=== PATIENT | female | born 1970 | race Caucasian/White ===

== ENCOUNTER 2016-05-09 02:17 | Emergency (ER) | payer SELFPAY ==
[~2016-05-09 02:17] MED LIST: ALPR2TAB5 PO; LURA80TA PO
[2016-05-09] MEDS ORDERED: ONDANSETRON PF 4 MG/2 ML VIAL. IV ONE ×2 (02:30)
[2016-05-09] MEDS ORDERED: MVI, ADULT NO.4 WITH VIT K 10 ML, FOLIC ACID 1 MG, THIAMINE 100 MG in IV DEXTROSE 5%-LA... IV ONE ×4 (02:30)
[2016-05-09] MEDS ORDERED: FOLIC ACID 5 MG/ML SYRINGE for ER IV ONE (02:33)
[2016-05-09] MEDS ORDERED: IV DEXTROSE 5%-LACT RINGERS 1,000 ML ONE (02:33)
[2016-05-09] MEDS ORDERED: MVI, ADULT NO.4 WITH VIT K 10 ML VIAL IV ONE (02:33)
[2016-05-09] MEDS ORDERED: THIAMINE 200 MG/2 ML VIAL. IV ONE (02:34)
[2016-05-09 02:45] LABS: BARBITURATES NEG (NEG); BENZODIAZEPINES POS (NEG); CANNABINOIDS NEG (NEG); COCAINE NEG (NEG); METHADONE NEG (NEG); OPIATES NEG (NEG); PHENCYCLIDINE NEG (NEG)
[2016-05-09 02:46] LABS: AMPHETAMINE/METHAMPHETAMINE NEG (NEG)
[2016-05-09 02:53] LABS: ALBUMIN 3.4 g/dL (3.4-5.0); ALBUMIN/GLOBULIN RATIO 0.8 (1.0-1.7); BACTERIA,URINE FEW /HPF (0-FEW); BILIRUBIN,URINE NEG (NEG); CALCIUM 8.4 mg/dL (8.5-10.1); CLARITY,URINE CLEAR; COLOR,URINE YELLOW; CREATININE 0.8 mg/dL (0.6-1.0); GFR 77.2; GLUCOSE,URINE NEG (NEG); NITRITE,URINE NEG (NEG); POTASSIUM 3.7 mmol/L (3.5-5.1); RBC,URINE 0 /HPF (0-2); SQUAMOUS EPITHELIAL CELL,UR FEW /LPF; TOTAL BILIRUBIN 0.3 mg/dL (0.2-1.0); TOTAL PROTEIN 7.8 g/dL (6.4-8.2); UROBILINOGEN,URINE 0.2 mg/dL (0.2 mg/dL); WBC,URINE RARE /HPF (0-4)
[2016-05-09 02:56] LABS: ETHANOL 184 mg/dL (0-10); SALIC 4.2 mg/dL (2.8-20.0)
[2016-05-09 02:57] LABS: ACETAMIN < 2.0 mcg/mL (10-30)
[2016-05-09 03:16] LABS: BASO # 0.1 x10^3/uL (0.0-0.2); BASO % 1 % (0-3); EOS # 0.2 x10^3/uL (0.0-0.7); EOS % 2 % (0-3); HEMATOCRIT 44.6 % (36.0-47.0); LYMPH # 2.5 x10^3/uL (1.0-4.8); LYMPH % 28 % (24-48); MEAN CORPUSCULAR HEMOGLOBIN 31 pg (25-35); MEAN CORPUSCULAR HGB CONC 34 g/dL (31-37); MEAN CORPUSCULAR VOLUME 91 fL (79-100); MONO # 0.7 x10^3/uL (0.0-1.1); MONO % 8 % (0-9); NEUT # 5.4 x10^3uL (1.8-7.7); NEUT % 61 % (31-73); PLATELET COUNT 270 x10^3/uL (140-400); RED BLOOD COUNT 4.91 x10^6/uL (3.50-5.40); RED CELL DISTRIBUTION WIDTH 13.7 % (11.5-14.5); WHITE BLOOD COUNT 8.9 x10^3/uL (4.0-11.0)
[2016-05-09] MEDS ORDERED: IV RINGERS SOLUTION,LACTATED 1,000 ML IV ONE ×2 (03:47→04:00)
[2016-05-09 05:03] VITALS: BP 106/68
[2016-05-09] MEDS ORDERED: ONDA4TAB7 PO (05:03)
--- NOTE | 2016-05-09 05:04 | PHYS DOC ---
Past History Past Medical History: Anxiety, Bipolar, Depression, Schizophrenia Past Surgical History: Appendectomy, , Hysterectomy Alcohol Use: Heavy Drug Use: None Adult General Chief Complaint Chief Complaint: ALCOHOL INTOXICATION HPI HPI 46-year-old female with a history of anxiety and bipolar presents stating she took 4 Xanax throughout the day and then was drinking margaritas with her [id number] and became sick and throw up so she called EMS to come take her to the emergency department for further evaluation. She denies any other ingestion. She denies any suicidal or homicidal ideation. is intoxicated. [] Review of Systems Review of Systems Constitutional: Denies fever or chills [] Eyes: Denies change in visual acuity, redness, or eye pain [] HENT: Denies nasal congestion or sore throat [] Respiratory: Denies cough or shortness of breath [] Cardiovascular: No additional information not addressed in HPI [] GI: Denies abdominal pain, nausea, vomiting, bloody stools or diarrhea [] : Denies dysuria or hematuria [] Musculoskeletal: Denies back pain or joint pain [] Integument: Denies rash or skin lesions [] Neurologic: Denies headache, focal weakness or sensory changes [] Endocrine: Denies polyuria or polydipsia [] Current Medications Current Medications Current Medications Medications (Trade) Dose Ordered Sig/Danyel Start Time Stop Time Status Last Admin Dose Admin Dextrose/Lactated Ringer's (Iv D5%-Lr) 1,000 ml @ As Directed STK-MED ONCE 05/09/16 02:33 05/09/16 02:34 DC Folic Acid 5 mg STK-MED ONCE 05/09/16 02:33 05/09/16 02:34 DC Lactated Ringer's (Iv Lactated Ringers) 1,000 ml @ 1,000 mls/hr 1X ONCE 05/09/16 04:00 05/09/16 04:59 DC 05/09/16 03:56 1,000 MLS/HR Multivitamins/ Minerals (Infuvite Adult) 10 ml STK-MED ONCE 05/09/16 02:33 05/09/16 02:34 DC Multivitamins/ Minerals/Folic Acid/Thiamine HCl/ Dextrose/Lactated Ringer's (Infuvite Adult/ Iv D5%-Lr) 1,011.2 ml @ 0 mls/hr 1X ONCE 05/09/16 02:30 05/09/16 02:42 1,000 MLS/HR Ondansetron HCl (Zofran) 4 mg 1X ONCE 05/09/16 02:30 05/09/16 04:38 DC 05/09/16 02:29 4 MG Ondansetron HCl 4 mg 4 mg 1X ONCE 05/09/16 02:30 05/09/16 04:38 DC 05/09/16 02:30 4 MG Thiamine HCl 200 mg 200 mg STK-MED ONCE 05/09/16 02:34 05/09/16 02:35 DC Allergies Allergies Allergies Coded Allergies Type Severity Reaction Last Updated Verified No Known Drug Allergies 12/16/15 No Physical Exam Physical Exam Constitutional: Well developed, well nourished, no acute distress, obviously intoxicated. [] HENT: Normocephalic, atraumatic, bilateral external ears normal, oropharynx moist, no oral exudates, nose normal. [] Eyes: PERRLA, EOMI, conjunctiva normal, no discharge. [] Neck: Normal range of motion, no tenderness, supple, no stridor. [] Cardiovascular:Heart rate regular rhythm, no murmur [] Lungs & Thorax: Bilateral breath sounds clear to auscultation [] Abdomen: Bowel sounds normal, soft, no tenderness, no masses, no pulsatile masses. [] Skin: Warm, dry, no erythema, no rash. [] Back: No tenderness, no CVA tenderness. [] Extremities: No tenderness, no cyanosis, no clubbing, ROM intact, no edema. [] Neurologic: Alert and oriented X 3, normal motor function, normal sensory function, no focal deficits noted. [] Psychologic: Intoxicated. [] Current Patient Data Vital Signs Vital Signs Date Time Temp Pulse Resp B/P Pulse Ox O2 Delivery O2 Flow Rate FiO2 05/09/16 03:45 100 20 90/46 94 Room Air 05/09/16 02:17 97.9 Lab Results Laboratory Tests Test 05/09/16 02:15 White Blood Count 8.9x10^3/uL (4.0-11.0) Red Blood Count 4.91x10^6/uL (3.50-5.40) Hemoglobin 15.0g/dL (12.0-15.5) Hematocrit 44.6% (36.0-47.0) Mean Corpuscular Volume 91fL (79-100) Mean Corpuscular Hemoglobin 31pg (25-35) Mean Corpuscular Hemoglobin Concent 34g/dL (31-37) Red Cell Distribution Width 13.7% (11.5-14.5) Platelet Count 270x10^3/uL (140-400) Neutrophils (%) (Auto) 61% (31-73) Lymphocytes (%) (Auto) 28% (24-48) Monocytes (%) (Auto) 8% (0-9) Eosinophils (%) (Auto) 2% (0-3) Basophils (%) (Auto) 1% (0-3) Neutrophils # (Auto) 5.4x10^3uL (1.8-7.7) Lymphocytes # (Auto) 2.5x10^3/uL (1.0-4.8) Monocytes # (Auto) 0.7x10^3/uL (0.0-1.1) Eosinophils # (Auto) 0.2x10^3/uL (0.0-0.7) Basophils # (Auto) 0.1x10^3/uL (0.0-0.2) Urine Collection Type U cath Urine Color Yellow Urine Clarity Clear Urine pH 5.0 Urine Specific [place] <=1.005 Urine Protein Neg (NEG-TRACE) Urine Glucose (UA) Negmg/dL (NEG) Urine Ketones (Stick) Negmg/dL (NEG) Urine Blood Neg (NEG) Urine Nitrite Neg (NEG) Urine Bilirubin Neg (NEG) Urine Urobilinogen Dipstick 0.2mg/dL (0.2 mg/dL) Urine Leukocyte Esterase Neg (NEG) Urine RBC 0/HPF (0-2) Urine WBC Rare/HPF (0-4) Urine Squamous Epithelial Cells Few/LPF Urine Bacteria Few/HPF (0-FEW) Sodium Level 146mmol/L (136-145) H Potassium Level 3.7mmol/L (3.5-5.1) Chloride Level 109mmol/L (98-107) H Carbon Dioxide Level 27mmol/L (21-32) Anion Gap 10 (6-14) Blood Urea Nitrogen 10mg/dL (7-20) Creatinine 0.8mg/dL (0.6-1.0) Estimated GFR (Cockcroft-Gault) 77.2 BUN/Creatinine Ratio 13 (6-20) Glucose Level 101mg/dL (70-99) H Calcium Level 8.4mg/dL (8.5-10.1) L Total Bilirubin 0.3mg/dL (0.2-1.0) Aspartate Amino Transferase (AST) 49U/L (15-37) H Alanine Aminotransferase (ALT) 58U/L (14-59) Alkaline Phosphatase 79U/L (46-116) Total Protein 7.8g/dL (6.4-8.2) Albumin 3.4g/dL (3.4-5.0) Albumin/Globulin Ratio 0.8 (1.0-1.7) L Salicylates Level 4.2mg/dL (2.8-20.0) Salicylate Last Dose Date Unknown Salicylate Last Dose Time Unknown Urine Opiates Screen Neg (NEG) Urine Methadone Screen Neg (NEG) Acetaminophen Level < 2.0mcg/mL (10-30) L Acetaminophen Last Dose Date Unknown Acetaminophen Last Dose Time Unknown Urine Barbiturates Neg (NEG) Urine Phencyclidine Screen Neg (NEG) Urine Amphetamine/Methamphetamine Neg (NEG) Urine Benzodiazepines Screen Pos (NEG) Urine Cocaine Screen Neg (NEG) Urine Cannabinoids Screen Neg (NEG) Ethyl Alcohol Level 184mg/dL (0-10) H Urine Ethyl Alcohol Pos (NEG) EKG EKG [] Radiology/Procedures Radiology/Procedures [] Course & Med Decision Making Course & Med Decision Making Pertinent Labs and Imaging studies reviewed. (See chart for details) [ED course: Evaluation reveals a very intoxicated 46-year-old female. She was given a total of 2 L of fluids 1 being a banana bag of lactated Ringer's and 4 of Zofran. This did help alleviate her symptoms. She was watched in the emergency department for several hours until she was able to sober up. She had a ride here to take care of her. She is stable to go home.] Dragon Disclaimer Dragon Disclaimer This chart was dictated in whole or in part using Voice Recognition software in a busy, high-work load, and often noisy Emergency Department environment. It may contain unintended and wholly unrecognized errors or omissions. Departure Departure: Impression: Primary Impression: Alcohol intoxication Disposition: 01 HOME, SELF-CARE Condition: IMPROVED Referrals: [facility] (PCP) Patient Instructions: Alcohol Intoxication Additional Instructions: Thank you for allowing us to participate in your care today. Followup with your primary care physician in 3 days if your symptoms do not improve. Return to the emergency department you have any new or concerning findings. This should be evaluated by the primary care physician and any necessary consulting services for continued management within a few days after discharge. Return to emergency room if you have any new or concerning symptoms including but not limited to fever, chills, nausea, vomiting, intractable pain, any new rashes, chest pain, shortness of air, uncontrolled bleeding, difficulty breathing, and/or vision loss. You may have been prescribed medication that can change in your level of thinking and ability to operate machinery. These medications include hydrocodone and Ativan. Also, Benadryl has been known to do this as well. Be sure to check with your pharmacist and ask if the medications you've prescribed can affect your level of consciousness. I recommend not operating heavy machinery or driving while on medication such as these. Scripts Ondansetron Hcl (Zofran)4 Mg Tablet1 Tab PO Q8HRS NAUSEA #20 TAB Prov:WILLIAM CERDA DO 05/09/16 Problem Qualifiers Primary Impression: Alcohol intoxication Complication of substance-induced condition: uncomplicated Qualified Code: F10.120 - Alcohol abuse with intoxication, uncomplicated WILLIAM CERDA DO May 09, 2016 05:04
== END 2016-05-09 05:13 | disposition home or self-care (01) ==
LOC: ER 02:17
DX: F10.129 Alcohol abuse with intoxication, unspecified (principal); F41.9 Anxiety disorder, unspecified; F31.9 Bipolar disorder, unspecified; F20.9 Schizophrenia, unspecified; Z90.710 Acquired absence of both cervix and uterus; Z90.49 Acquired absence of other specified parts of digestive tract; Y90.6 Blood alcohol level of 120-199 mg/100 ml
CPT/HCPCS: 36415; 80053; 80305; 80320; 81001; 85027; 96361; 96365; 96375; 99284; G6038; J2405; J7120; G0480; G0481; 80196

== ENCOUNTER 2016-10-25 21:34 | Emergency (ER) | payer SELFPAY ==
[~2016-10-25] VITALS: Ht 167.6 cm; Wt 104.0 kg
[~2016-10-25 21:34] MED LIST changes: +ONDA4TAB7 PO
--- NOTE | 2016-10-25 21:48 | ED.ADGEN ---
Past History Past Medical History: Anxiety, Bipolar, Depression, DVT, Schizophrenia Past Surgical History: Appendectomy, , Hysterectomy Smoking: Cigarettes Alcohol Use: Heavy Drug Use: Amphetamine, Marijuana, Methamphetamine Adult General Chief Complaint Chief Complaint " I was out drinking last night... and maybe drank too much... then late last night someone suggested doing some meth... I snorted maybe ten lines of meth.. but it got me all jacked up and I have not been to sleep yet... and I got this Rt hand numbness ... and just feel all agitated, short of breath.. and anxious. " HPI HPI Patient is a 46 year old female who presents with above hx and complaints. Pt. has hx of prior DVT, one year ago and again 4 months ago in legs. Pt. declined to take Coumadin long-term because cost of repeated testing. Pt. does continue to smoke. Patient gives hx of polysubstance abuse. Pt. denies previous heart attacks or strokes. Patient does have a history of bipolar, depression, schizophrenia, anxiety disorder, and DVTs. Patient currently very anxious and hyper alert. Patient currently follows at [facility] for care. Patient denies any swelling or tenderness in legs. Patient states she's had insomnia since doing the meth yesterday. Patient states she's has been had tachycardia since doing the meth yesterday. Pt. reports last Lt calf DVT was txed with Coumadin and reportedly last CT showed clearing of the pulmonary embolisms at [facility] 4 months ago. Patient denies any trauma. Patient denies any specific ill contacts. Patient denies specific history of coagulopathy such as Leiden or factor V. Review of Systems Review of Systems Constitutional: Denies fever or chills [] Eyes: Denies change in visual acuity, redness, or eye pain [] HENT: Denies nasal congestion or sore throat [] Respiratory: Complaints of shortness of breath [] Cardiovascular: No additional information not addressed in HPI [] GI: Denies abdominal pain, nausea, vomiting, bloody stools or diarrhea [] : Denies dysuria or hematuria [] Musculoskeletal: Denies back pain or joint pain [] Integument: Denies rash or skin lesions [] Neurologic: Denies headache, focal weakness or sensory changes [] Endocrine: Denies polyuria or polydipsia [] Family History Family History Noncontributory Current Medications Current Medications Current Medications Medications (Trade) Dose Ordered Sig/Danyel Start Time Stop Time Status Last Admin Dose Admin Aspirin (Festus Aspirin) 325 mg 1X ONCE 10/25/16 22:15 10/25/16 22:16 DC 10/25/16 22:15 325 MG Dextrose/Lactated Ringer's 1,000 ml @ As Directed STK-MED ONCE 10/26/16 00:55 10/26/16 00:56 DC Enoxaparin Sodium (Lovenox 100mg Syringe) 100 mg 1X ONCE 10/26/16 01:00 10/26/16 01:01 DC 10/26/16 01:00 100 MG Folic Acid 5 mg STK-MED ONCE 10/26/16 00:55 10/26/16 00:56 DC Info (Do NOT chart on this entry -- for MONITORING) 1 each PRN DAILY PRN 10/25/16 23:45 10/26/16 02:18 DC Iohexol (Omnipaque 300 Mg/ml) 75 ml 1X ONCE 10/25/16 23:45 10/25/16 23:46 DC 10/25/16 23:48 75 ML Lactated Ringer's 1,000 ml @ 1,000 mls/hr Q1H 10/25/16 22:00 10/25/16 22:57 DC 10/25/16 22:00 1,000 MLS/HR Lorazepam (Ativan) 1 mg STK-MED ONCE 10/26/16 02:00 10/26/16 02:18 DC Multivitamins/ Minerals (Infuvite Adult) 10 ml STK-MED ONCE 10/26/16 00:55 10/26/16 00:56 DC Multivitamins/ Minerals 10 ml/ Folic Acid 1 mg/ Thiamine HCl 100 mg/Dextrose/ Lactated Ringer's 1,011.2 ml @ 0 mls/hr 1X ONCE 10/26/16 01:00 10/26/16 01:01 DC 10/26/16 01:00 1,000 MLS/HR Ondansetron HCl (Zofran) 4 mg STK-MED ONCE 10/26/16 00:44 10/26/16 00:45 DC Thiamine HCl 200 mg STK-MED ONCE 10/26/16 00:54 10/26/16 00:55 DC See nursing for home medications Allergies Allergies Allergies Coded Allergies Type Severity Reaction Last Updated Verified No Known Drug Allergies 10/25/16 No Physical Exam Physical Exam Constitutional: Moderately acute emotional distress, non-toxic appearance. [] HENT: Normocephalic, atraumatic, bilateral external ears normal, oropharynx moist, no oral exudates, nose rhinorrhea Eyes: PERRLA, EOMI, conjunctiva normal, no discharge. [] Neck: Normal range of motion, no tenderness, supple, no stridor. [] Cardiovascular: Tachycardia Heart rate regular rhythm, no murmur [] Lungs & Thorax: Bilateral breath sounds equal apexes with scattered wheezes on auscultation [] Abdomen: Bowel sounds normal, soft, no tenderness, no masses, no pulsatile masses. Old surgical scars Skin: Warm, dry, no erythema, no rash. [] Back: No tenderness, no CVA tenderness. Extremities; No cording appreciated Neurologic: Alert and oriented X 3, normal motor function, normal sensory function, no focal deficits noted. []Objective feelings of numbness in right hand and forearm. DTRs are +2 at patella and brachial. Distal vibratory intact 128. No drift. Finger to nose with eyes closed is good. Psychologic: Affect anxious judgement normal, mood depressed Current Patient Data Vital Signs Vital Signs Date Time Temp Pulse Resp B/P (MAP) Pulse Ox O2 Delivery O2 Flow Rate FiO2 10/26/16 02:00 107 20 113/78 (90) 97 Room Air 10/25/16 21:45 98.5 Lab Results Laboratory Tests Test 10/25/16 22:05 White Blood Count 9.3 x10^3/uL (4.0-11.0) Red Blood Count 5.64 x10^6/uL (3.50-5.40) H Hemoglobin 17.1 g/dL (12.0-15.5) H Hematocrit 49.2 % (36.0-47.0) H Mean Corpuscular Volume 87 fL (79-100) Mean Corpuscular Hemoglobin 30 pg (25-35) Mean Corpuscular Hemoglobin Concent 35 g/dL (31-37) Red Cell Distribution Width 15.8 % (11.5-14.5) H Platelet Count 289 x10^3/uL (140-400) Neutrophils (%) (Auto) 69 % (31-73) Lymphocytes (%) (Auto) 20 % (24-48) L Monocytes (%) (Auto) 9 % (0-9) Eosinophils (%) (Auto) 1 % (0-3) Basophils (%) (Auto) 1 % (0-3) Neutrophils # (Auto) 6.4 x10^3uL (1.8-7.7) Lymphocytes # (Auto) 1.9 x10^3/uL (1.0-4.8) Monocytes # (Auto) 0.9 x10^3/uL (0.0-1.1) Eosinophils # (Auto) 0.1 x10^3/uL (0.0-0.7) Basophils # (Auto) 0.1 x10^3/uL (0.0-0.2) Prothrombin Time 10.1 SEC (9.4-11.4) Prothrombin Time INR 1.0 (0.9-1.1) PTT 22 SEC (23-33) L D-Dimer (Sylvia) 0.87 mg/L (0.00-0.50) H Urine Collection Type Void Urine Color Yellow Urine Clarity Clear Urine pH 5.5 Urine Specific [place] 1.015 Urine Protein Neg (NEG-TRACE) Urine Glucose (UA) Neg mg/dL (NEG) Urine Ketones (Stick) 40 mg/dL (NEG) Urine Blood Trace (NEG) Urine Nitrite Neg (NEG) Urine Bilirubin Neg (NEG) Urine Urobilinogen Dipstick 0.2 mg/dL (0.2 mg/dL) Urine Leukocyte Esterase Neg (NEG) Urine RBC Occ /HPF (0-2) Urine WBC 0 /HPF (0-4) Urine Squamous Epithelial Cells Few /LPF Urine Bacteria Few /HPF (0-FEW) Urine Hyaline Casts Occ /HPF Sodium Level 133 mmol/L (136-145) L Potassium Level 4.1 mmol/L (3.5-5.1) Chloride Level 100 mmol/L (98-107) Carbon Dioxide Level 22 mmol/L (21-32) Anion Gap 11 (6-14) Blood Urea Nitrogen 4 mg/dL (7-20) L Creatinine 0.8 mg/dL (0.6-1.0) Estimated GFR (Cockcroft-Gault) 77.2 BUN/Creatinine Ratio 5 (6-20) L Glucose Level 98 mg/dL (70-99) Calcium Level 9.0 mg/dL (8.5-10.1) Magnesium Level 2.0 mg/dL (1.8-2.4) Total Bilirubin 0.7 mg/dL (0.2-1.0) Direct Bilirubin 0.1 mg/dL (0.0-0.2) Aspartate Amino Transferase (AST) 61 U/L (15-37) H Alanine Aminotransferase (ALT) 58 U/L (14-59) Alkaline Phosphatase 125 U/L (46-116) H Troponin I Quantitative < 0.017 ng/mL (0-0.055) [id number]-Ydx-[id number]-Type Natriuretic Peptide 143 pg/mL (0-124) H Total Protein 8.6 g/dL (6.4-8.2) H Albumin 4.0 g/dL (3.4-5.0) Albumin/Globulin Ratio 0.9 (1.0-1.7) L Lipase 106 U/L (73-393) Urine Opiates Screen Neg (NEG) Urine Methadone Screen Neg (NEG) Urine Barbiturates Neg (NEG) Urine Phencyclidine Screen Neg (NEG) Urine Amphetamine/Methamphetamine Pos (NEG) Urine Benzodiazepines Screen Pos (NEG) Urine Cocaine Screen Neg (NEG) Urine Cannabinoids Screen Neg (NEG) Ethyl Alcohol Level < 10 mg/dL (0-10) Urine Ethyl Alcohol Neg (NEG) EKG EKG [] Radiology/Procedures Radiology/Procedures I interpretation of chest x-ray shows some chronic dizziness/COPD pattern. No large infiltrate CT of chest shows peripheral vessel[] filling defect right lower lobe. Possible new pulmonary embolus versus old scarring. Does have multiple small nodules. See formal report CT head shows no findings acute CVA. No shift, mass, edema, bleed, or fracture. See formal report Course & Med Decision Making Course & Med Decision Making Pertinent Labs and Imaging studies reviewed. (See chart for details) Discussed presentation, testing and tx. plan with Dr Kusum Samayoa. Will accept pt. in transfer to [facility]. Possible Pul and Hematology consults. US of legs not completed at time of transfer. [] Final Impression Final Impression 1. Dyspnea 2. Pulmonary embolism new versus old scarring[] 3. Dehydration 4. Elevated d-dimer 5. Hyponatremia 6. Elevated AST and ALT 7. Tachycardia 8. History of anxiety disorder 9. History of polysubstance abuse and tobacco use 10. History of schizophrenia 11. History bipolar depression 12. Hx. HTN Problems: Bryanna Disclaimer Dragon Disclaimer This electronic medical record was generated, in whole or in part, using a voice recognition dictation system. TIFFANY PEARSON MD Oct 25, 2016 21:48
[2016-10-25] MEDS ORDERED: IV RINGERS SOLUTION,LACTATED 1,000 ML IV SCH (22:00)
[2016-10-25] MEDS ORDERED: ASPIRIN 325 MG TABLET PO ONE (22:15)
[2016-10-25] MEDS ORDERED: LISI-338 PO (22:24)
[2016-10-25 22:31] LABS: BILIRUBIN,URINE NEG (NEG); CLARITY,URINE CLEAR; COLOR,URINE YELLOW; GLUCOSE,URINE NEG (NEG); NITRITE,URINE NEG (NEG); UROBILINOGEN,URINE 0.2 mg/dL (0.2 mg/dL)
[2016-10-25 22:36] LABS: BARBITURATES NEG (NEG); BENZODIAZEPINES POS (NEG); CANNABINOIDS NEG (NEG); COCAINE NEG (NEG); METHADONE NEG (NEG); OPIATES NEG (NEG); PHENCYCLIDINE NEG (NEG)
[2016-10-25 22:37] LABS: BASO # 0.1 x10^3/uL (0.0-0.2); BASO % 1 % (0-3); EOS # 0.1 x10^3/uL (0.0-0.7); EOS % 1 % (0-3); HEMATOCRIT 49.2 % (36.0-47.0); HEMOGLOBIN 17.1 g/dL (12.0-15.5); LYMPH # 1.9 x10^3/uL (1.0-4.8); LYMPH % 20 % (24-48); MEAN CORPUSCULAR HEMOGLOBIN 30 pg (25-35); MEAN CORPUSCULAR HGB CONC 35 g/dL (31-37); MEAN CORPUSCULAR VOLUME 87 fL (79-100); MONO # 0.9 x10^3/uL (0.0-1.1); MONO % 9 % (0-9); NEUT # 6.4 x10^3uL (1.8-7.7); NEUT % 69 % (31-73); PLATELET COUNT 289 x10^3/uL (140-400); RED BLOOD COUNT 5.64 x10^6/uL (3.50-5.40); RED CELL DISTRIBUTION WIDTH 15.8 % (11.5-14.5); WHITE BLOOD COUNT 9.3 x10^3/uL (4.0-11.0)
[2016-10-25 22:38] LABS: BACTERIA,URINE FEW /HPF (0-FEW); RBC,URINE OCC /HPF (0-2); SQUAMOUS EPITHELIAL CELL,UR FEW /LPF; WBC,URINE 0 /HPF (0-4)
[2016-10-25 22:39] LABS: AMPHETAMINE/METHAMPHETAMINE POS (NEG); HYALINE CASTS, URINE OCC /HPF
--- NOTE | 2016-10-25 22:41 | RAD ---
CT HEAD INDICATION: Headache, lightheaded, weakness tonight. No priors. COMPARISON: None Available. TECHNIQUE: 5 mm contiguous axial images were obtained from the skull base to the vertex in both bone and soft tissue algorithm. FINDINGS: No abnormal attenuation within the brain parenchyma. No evidence of acute intracranial hemorrhage. No extra-axial fluid collections. No mass effect or midline shift. Ventricular size is appropriate. Basal cisterns are patent. No fractures identified.Coker-white differentiation is preserved.Globes and orbits are within normal limits. Paranasal sinuses and mastoid air cells are clear. IMPRESSION: Unremarkable CT examination of the head without contrast, as above. Specifically, no evidence of an acute intracranial abnormality. Electronically signed by: Shaheed Navarro MD (10/25/2016 10:38 PM) [facility]
[2016-10-25 23:00] LABS: ALBUMIN/GLOBULIN RATIO 0.9 (1.0-1.7); CREATININE 0.8 mg/dL (0.6-1.0); DIRECT BILIRUBIN 0.1 mg/dL (0.0-0.2); GFR 77.2; POTASSIUM 4.1 mmol/L (3.5-5.1); TOTAL BILIRUBIN 0.7 mg/dL (0.2-1.0); TOTAL PROTEIN 8.6 g/dL (6.4-8.2)
[2016-10-25] MEDS ORDERED: IOHEXOL 300 MG/ML 75 ML VIAL. IV ONE (23:45)
[2016-10-25] MEDS ORDERED: CONTRAST GIVEN MC PRN (23:45)
--- NOTE | 2016-10-26 00:20 | RAD ---
INDICATION: [id number] Omni 300 75cc: PE protocol: Chest pain, short of air, throat tightness, elevated d-dimer. Hx: Lung PE per patient. No priors here. COMPARISON: None. TECHNIQUE: Axial CT images obtained through the chest. Intravenous contrast utilized. Angiogram 3D images processed per protocol. One or more of the following individualized dose reduction techniques were utilized for this examination: 1. Automated exposure control; 2. Adjustment of the mA and/or kV according to patient size; 3. Use of iterative reconstruction technique. FINDINGS: Couple of Sub-4 mm left lung pulmonary nodule, image 75. 5-6 mm nodule at left lung base. There are also some scattered nodules in the right lung. Mild cystic changes of lung. No evidence of pneumothorax. 3 mm suspected nonobstructive left renal stone versus calcification. Probable cystic lesion at liver. No evidence of thoracic aortic aneurysm. Degenerative changes of spine with osteophyte formation. Adjacent to the aortic arch and left medial lung there is a focal opacity measuring approximately 11 mm. Within the right lower lung there is some apparent small filling defects within peripheral pulmonary arteries. IMPRESSION: 1. Small filling defects at peripheral pulmonary arteries within the right lower lung. Could be secondary to a small peripheral pulmonary embolus of unknown age. Given that the patient has a reported history of pulmonary embolus is unclear whether this is secondary to the patient's old embolus in the region with partial recannulization or if this is a new finding given lack of comparison. There is no evidence of extension into the main pulmonary arteries. 2. There are some nodules seen within the lungs as well as a focal opacity within the left upper lung medially measuring up to about 11 mm. This focal opacity could be infectious or inflammatory in nature but a close follow-up will be needed to ensure that this does not increase in size to ensure that this is not from a neoplastic cause. Follow-up CT could be obtained in a couple of months. Electronically signed by: Ezequiel Palomo MD (10/26/2016 12:17 AM) [facility]
[2016-10-26] MEDS ORDERED: ONDANSETRON PF 4 MG/2 ML VIAL. ONE (00:44)
[2016-10-26] MEDS ORDERED: THIAMINE 200 MG/2 ML VIAL. IV ONE (00:54)
[2016-10-26] MEDS ORDERED: FOLIC ACID 5 MG/ML SYRINGE for ER IV ONE (00:55)
[2016-10-26] MEDS ORDERED: MVI, ADULT NO.4 WITH VIT K 10 ML VIAL IV ONE (00:55)
[2016-10-26] MEDS ORDERED: IV DEXTROSE 5%-LACT RINGERS 1,000 ML ONE (00:55)
[2016-10-26] MEDS ORDERED: MVI, ADULT NO.4 WITH VIT K 10 ML, FOLIC ACID 1 MG, THIAMINE 100 MG in IV DEXTROSE 5%-LA... IV ONE ×4 (01:00)
[2016-10-26] MEDS ORDERED: ENOXAPARIN ** NOTE DOSE ** SYRINGE SQ ONE (01:00)
[2016-10-26] MEDS ORDERED: LORazepam 1 MG TABLET PO ONE (01:45)
[2016-10-26 02:00] VITALS: BP 113/78
[2016-10-26] MEDS ORDERED: LORazepam 1 MG TABLET ONE (02:00)
--- NOTE | 2016-10-26 02:32 | EKG ---
[address] [address] Test Date: 2016-10-25 Test Time: 21:45:32 Pat Name: JOURDAN RESTREPO Department: Room: Gender: F [employer]: ROBERT : 1970 Requested By: TIFFANY PEARSON Order Number: [id number] Reading MD: Esvin Dixon Measurements Intervals Carrier Rate: 123 P: 43 SC: 134 QRS: 16 QRSD: 80 T: 31 QT: 312 QTc: 452 Interpretive Statements SINUS TACHYCARDIA NON-SPECIFIC ST/T CHANGES Electronically Signed On 10-28-2016 9:55:27 CDT by Esvin Dixon
--- NOTE | 2016-10-26 08:08 | RAD ---
Chest, 2 views, 10/25/2016: History: Chest pain, throat tightness, dyspnea The heart size and pulmonary vascularity are normal. No pulmonary infiltrates are seen. There is no evidence of pleural fluid. Moderate spurring is present in the spine. IMPRESSION: No acute cardiopulmonary abnormality is detected.
== END 2016-10-26 02:08 | disposition short-term general hospital (02) ==
LOC: ER 21:34
DX: R06.00 Dyspnea, unspecified (principal); I26.99 Other pulmonary embolism without acute cor pulmonale; E86.0 Dehydration; R79.1 Abnormal coagulation profile; E87.1 Hypo-osmolality and hyponatremia; F41.9 Anxiety disorder, unspecified; F20.9 Schizophrenia, unspecified; F31.9 Bipolar disorder, unspecified; I10 Essential (primary) hypertension; F17.210 Nicotine dependence, cigarettes, uncomplicated; F19.10 Other psychoactive substance abuse, uncomplicated; R74.0 Nonspecific elevation of levels of transaminase and lactic acid dehydrogenase [LDH]; F10.10 Alcohol abuse, uncomplicated; Z86.718 Personal history of other venous thrombosis and embolism; Z86.711 Personal history of pulmonary embolism
CPT/HCPCS: 36415; 70450; 71020; 71275; 80053; 80076; 80307; 81001; 83690; 83735; 83880; 84443; 84484; 85025; 85379; 85610; 85730; 93005; 96361; 96365; 96372; 99285; G0480; J1650; J7120; Q9967; G0479